=== PATIENT | female | born 1995 | race Caucasian/White ===

== ENCOUNTER 2020-08-24 21:09 | Emergency (ER) | payer OTHER ==
[~2020-08-24] VITALS: Ht 167.6 cm; Wt 56.7 kg
[2020-08-24] MEDS ORDERED: HYDROCODON-ACE1 EAC8 PO (22:12)
[2020-08-24 22:48] VITALS: BP 124/80
== END 2020-08-24 22:48 | disposition home or self-care (01) ==
LOC: M.ERS 21:09
DX: S59.901A Unspecified injury of right elbow, initial encounter (principal); W22.8XXA Striking against or struck by other objects, initial encounter; Y93.66 Activity, soccer; Y92.322 Soccer field as the place of occurrence of the external cause; Y99.8 Other external cause status